=== PATIENT | male | born 1975 | race Two or more races ===

== ENCOUNTER 2019-08-30 16:17 | Emergency (ER) | payer OTHER ==
[~2019-08-30] VITALS: Ht 182.9 cm; Wt 93.0 kg
[2019-08-30] MEDS ORDERED: cefTRIAXone W LIDOCAINE 1 GM IM IM ONE (17:15)
[2019-08-30] MEDS ORDERED: AZITHROMYCIN 250 MG TAB PO ONE (17:15)
[2019-08-30] MEDS ORDERED: ZINC SULFATE 220mg CAP or TAB PO ONE (17:15)
[2019-08-30] MEDS ORDERED: ASCORBIC ACID 500 MG TAB PO ONE (17:15)
[2019-08-30] MEDS ORDERED: LIDOCAINE 2% (LOCAL ANESTH.) PF 5ml SDV ONE (17:21)
[2019-08-30] MEDS ORDERED: cefTRIAXone SOD 1,000 MG VL ONE (17:21)
== END 2019-08-30 17:46 | disposition home or self-care (01) ==
LOC: ER 16:17
DX: J18.9 Pneumonia, unspecified organism (principal); Z20.828 Contact with and (suspected) exposure to other viral communicable diseases
CPT/HCPCS: 71045; 87070; 87804; 87880; 96372; 99284; J0696; J2001; U0003

== ENCOUNTER 2019-10-06 11:30 | Emergency (ER) | payer OTHER ==
[~2019-10-06] VITALS: Ht 182.9 cm; Wt 90.7 kg
[2019-10-06 12:51] VITALS: BP 119/83
[2019-10-06] MEDS ORDERED: ACETAMINOPHEN 325 MG TAB PO ONE (13:30)
[2019-10-06 15:18] LABS: Basophils # (auto) 0 10 ^3/uL (0-0.2); Basophils % (auto) 0.4 % (0.0-2.0); Eosinophils # (auto) 0.1 10 ^3/uL (0-0.8); Eosinophils % (auto) 1.1 % (0.0-7.0); Hematocrit 47.2 % (41.0-53.0); Hemoglobin 16.1 g/dL (13.5-17.5); Lymphocytes # (auto) 2.2 10 ^3/uL (0.4-5.4); Lymphocytes % (auto) 41.1 % (10.0-50.0); Mean Corpuscular Hemoglobin 30.8 pg (28.0-32.0); Mean Corpuscular Hgb Conc. 34.2 g/dL (32.0-36.0); Mean Corpuscular Volume 90.1 fL (80.0-100.0); Monocytes # (auto) 0.6 10 ^3/uL (0-1.3); Monocytes % (auto) 11.7 % (0.0-12.0); Neutrophils # (auto) 2.4 10 ^3/uL (1.6-8.6); Neutrophils % (auto) 45.7 % (37.0-80.0); Nucleated Red Blood Cells % 0.7 %; Platelet Count (auto) 250 10^3/uL (140-450); Red Blood Cells 5.24 10^6/uL (4.5-5.90); Red Cell Distribution Width 13.1 % (11.8-14.3); White Blood Cell 5.2 10^3/uL (4.4-10.8)
[2019-10-06 15:28] LABS: Albumin 4.2 g/dL (3.4-5.0); Calcium 9.2 mg/dL (8.5-10.1); Magnesium 2.7 mg/dL (1.6-2.6)
[2019-10-06 15:32] LABS: BUN/Creatinine Ratio 21.2
== END 2019-10-06 16:59 | disposition left against medical advice (07) ==
LOC: ER 11:30
DX: J20.9 Acute bronchitis, unspecified (principal); Z20.828 Contact with and (suspected) exposure to other viral communicable diseases; Z53.29 Procedure and treatment not carried out because of patient's decision for other reasons
CPT/HCPCS: 36415; 71045; 80053; 83735; 85025; 87070; 87804; 87880; 99284; C9803; U0003